=== PATIENT | male | born 1990 | race Caucasian/White ===

== ENCOUNTER 2017-02-04 16:08 | Emergency (ER) | payer OTHER ==
[2017-02-04 16:16] VITALS: BP 140/70; PULSE 16; RESP 16; TEMP 98.2; O2SAT 99
[2017-02-04] MEDS ORDERED: cefTRIAXone (Rocephin) 250 mg Inj IM STA (16:28)
[2017-02-04] MEDS ORDERED: cefTRIAXone (Rocephin) 250 mg Inj ONE (16:49)
--- NOTE | 2017-02-04 16:49 | ED PDOC ---
HPI: Male Pain Time Seen by Provider: 02/04/17 16:30 Chief Complaint (Nursing): Male Genitourinary Chief Complaint (Provider): Genitourinary problem History Per: Patient History/Exam Limitations: no limitations Onset/Duration Of Symptoms: Days (2) Current Symptoms Are (Timing): Still Present Additional Complaint(s): Patient is a 26 y/o male with no significant past medical history presenting to the emergency department for penile discharge ongoing for two days. Notes that his partner is positive for chlamydia and gonorrhea. Denies pain elsewhere or other complaints. PCP: none provided. Past Medical History Reviewed: Historical Data, Nursing Documentation, Vital Signs Vital Signs: Last Vital Signs Temp 98.2 F 02/04/17 16:13 Pulse 16 L 02/04/17 16:13 Resp 16 02/04/17 16:13 BP 140/70 02/04/17 16:13 Pulse Ox 99 02/04/17 16:13 - Family History Family History: States: No Known Family Hx - Allergies Allergies/Adverse Reactions: Allergies Allergy/AdvReac Type Severity Reaction Status Date / Time No Known Allergies Allergy Verified 02/04/17 16:13 Review of Systems ROS Statement: Except As Marked, All Systems Reviewed And Found Negative Genitourinary Male: Positive for: Penile Discharge Physical Exam - Reviewed Nursing Documentation Reviewed: Yes Vital Signs Reviewed: Yes - Physical Exam Appears: Positive for: Well, Non-toxic, No Acute Distress Head Exam: Positive for: ATRAUMATIC, NORMAL INSPECTION, NORMOCEPHALIC Skin: Positive for: Normal Color, Warm, Dry Eye Exam: Positive for: Normal appearance Neck: Positive for: Normal Cardiovascular/Chest: Positive for: Regular Rate, Rhythm Respiratory: Negative for: Accessory Muscle Use, Respiratory Distress Extremity: Positive for: Normal ROM Neurologic/Psych: Positive for: Alert, Oriented (x3) - ECG O2 Sat by Pulse Oximetry: 99 (RA) Pulse Ox Interpretation: Normal Medical Decision Making Medical Decision Making: Time: 16:26 Initial impression: Genitourinary problem Initial plan: * Chlamydia/gonorrhea * Azithromycin 1 gram PO * Rocephin 250 mg IM ~ Scribe Attestation: Documented by Mahi Romero, acting as a scribe for GAYATHRI Grover. Provider Scribe Attestation: All medical record entries made by the Scribe were at my direction and personally dictated by me. I have reviewed the chart and agree that the record accurately reflects my personal performance of the history, physical exam, medical decision making, and the department course for this patient. I have also personally directed, reviewed, and agree with the discharge instructions and disposition. Disposition - Clinical Impression Clinical Impression: STD (male) - Patient ED Disposition Is Patient to be Admitted: No - Disposition Referrals: [facility] [Outside] Disposition: Routine/Home Disposition Time: 16:55 Condition: FAIR Instructions: Sexually Transmitted Diseases (ED) Forms: [employer] (Sami)
[2017-02-04] MEDS ORDERED: Sterile Water 10 ML IV ONE (16:50)
== END 2017-02-04 17:23 | disposition home or self-care (01) ==
LOC: H.ER 16:08
DX: Z11.3 Encounter for screening for infections with a predominantly sexual mode of transmission (principal)
CPT/HCPCS: 87491; 87591; 96372; 99282; J0696

== ENCOUNTER 2017-09-24 06:59 | Emergency (ER) | payer OTHER ==
[2017-09-24 07:15] VITALS: RESP 16; O2SAT 99
--- NOTE | 2017-09-24 07:51 | ED PDOC ---
HPI: Headache Time Seen by Provider: 09/24/17 07:09 Chief Complaint (Nursing): Headache Chief Complaint (Provider): Headache History Per: Patient History/Exam Limitations: no limitations Onset/Duration Of Symptoms: Days (x4), Intermittent Episodes, Gradual Current Symptoms Are (Timing): Still Present Associated Symptoms: denies: Photophobia, Nausea, Vomiting Additional Complaint(s): 27 year old male presented to the ED complaining of headache on the middle and upper posterior of head since thursday. Patient reports pain is intermittent and came with a gradual onset. He took advil with relief for 30 minutes. Denies photophobia, nausea, vomiting, fever, and neck stiffness. Of note, patient states he had similar symptoms when he was 13. PCP: none provided Past Medical History Reviewed: Historical Data, Nursing Documentation, Vital Signs Vital Signs: Last Vital Signs Temp 98 F 09/24/17 07:11 Pulse 61 09/24/17 07:11 Resp 16 09/24/17 07:11 BP 141/89 09/24/17 07:11 Pulse Ox 99 09/24/17 07:11 - Medical History PMH: No Chronic Diseases Denies: Chronic Kidney Disease - Surgical History Surgical History: No Surg Hx - Family History Family History: States: Unknown Family Hx - Social History Current smoker - smoking cessation education provided: No Alcohol: None Drugs: Denies - Home Medications Home Medications: Ambulatory Orders Medication Instructions Recorded Naproxen [Naprosyn] 500 mg PO BID PRN #15 tablet 09/24/17 - Allergies Allergies/Adverse Reactions: Allergies Allergy/AdvReac Type Severity Reaction Status Date / Time No Known Allergies Allergy Verified 02/04/17 16:13 Review of Systems ROS Statement: Except As Marked, All Systems Reviewed And Found Negative Constitutional: Negative for: Fever ENT: Negative for: Other (neck stiffness) Gastrointestinal: Negative for: Nausea, Vomiting Neurological: Positive for: Headache. Negative for: Other (photophobia) Physical Exam - Reviewed Nursing Documentation Reviewed: Yes Vital Signs Reviewed: Yes - Physical Exam Appears: Positive for: Non-toxic, No Acute Distress (Watching something on his phone) Head Exam: Positive for: ATRAUMATIC, NORMAL INSPECTION, NORMOCEPHALIC Skin: Positive for: Normal Color, Warm, Dry Eye Exam: Positive for: Normal appearance, EOMI, PERRL ENT: Positive for: Normal ENT Inspection Neck: Positive for: Normal, Painless ROM Cardiovascular/Chest: Positive for: Regular Rate, Rhythm. Negative for: Murmur Respiratory: Positive for: Normal Breath Sounds. Negative for: Wheezing, Respiratory Distress Gastrointestinal/Abdominal: Positive for: Normal Exam, Soft. Negative for: Tenderness Back: Positive for: Normal Inspection. Negative for: L CVA Tenderness, R CVA Tenderness Extremity: Positive for: Normal ROM Neurologic/Psych: Positive for: Alert, Oriented. Negative for: Motor/Sensory Deficits - ECG O2 Sat by Pulse Oximetry: 99 (RA) Pulse Ox Interpretation: Normal Medical Decision Making Medical Decision Making: Initial Impression: Headache Initial Plan: CT Head Toradol 30mg IM Scribe Attestation: Documented by Alec Miller acting as a scribe for Miracle Andrea MD. Provider Scribe Attestation: All medical record entries made by the Scribe were at my direction and personally dictated by me. I have reviewed the chart and agree that the record accurately reflects my personal performance of the history, physical exam, medical decision making, and the department course for this patient. I have also personally directed, reviewed, and agree with the discharge instructions and disposition. Disposition - Clinical Impression Clinical Impression: Acute headache - Disposition Referrals: [facility] [Outside] [facility] [Outside] Disposition: Routine/Home Disposition Time: 10:15 Condition: STABLE Prescriptions: Naproxen [Naprosyn] 500 mg PO BID PRN #15 tablet PRN Reason: Pain, Moderate (4-7) Instructions: Acute Headache (ED) Forms: [employer] (Pashto), [facility] ED School/Work Excuse
--- NOTE | 2017-09-24 09:07 | CT ---
PROCEDURE: CT HEAD WITHOUT CONTRAST. HISTORY: EDWARDS COMPARISON: None available. TECHNIQUE: Axial computed tomography images were obtained through the head/brain without intravenous contrast. Radiation dose: Total exam DLP = 896.5 mGy-cm. This CT exam was performed using one or more of the following dose reduction techniques: Automated exposure control, adjustment of the mA and/or kV according to patient size, and/or use of iterative reconstruction technique. FINDINGS: HEMORRHAGE: No intracranial hemorrhage. BRAIN: No mass effect or edema. No atrophy or chronic microvascular ischemic changes. VENTRICLES: Unremarkable. No hydrocephalus. CALVARIUM: Unremarkable. PARANASAL SINUSES: Unremarkable as visualized. No significant inflammatory changes. MASTOID AIR CELLS: Unremarkable as visualized. No inflammatory changes. OTHER FINDINGS: None. IMPRESSION: No acute intracranial pathology.
[2017-09-24 10:23] VITALS: BP 136/53; PULSE 53; TEMP 98.1
== END 2017-09-24 10:31 | disposition home or self-care (01) ==
LOC: H.ER 06:59
DX: R51 Headache (principal)
CPT/HCPCS: 70450; 96372; 99285; J1885